=== PATIENT | male | born 1950 | race Caucasian/White ===

== ENCOUNTER 2016-05-22 12:18 | Emergency (ER) | payer MEDICAID ==
[~2016-05-22] VITALS: Ht 182.9 cm; Wt 115.7 kg
[~2016-05-22 12:18] MED LIST: ALBUTEROL2.5 MG/3 M HHN; CIPROFLOXACIN500 M2 ORAL; IBUPROFEN600 MG ORAL; LEVAQUIN750 MG ORAL; NKM; NORCO 5-325 TA1 EACH ORAL; ZITHROMAX250 MG ORAL
--- NOTE | 2016-05-22 13:10 | Emergency Room Report ---
History of Present Illness General Chief Complaint: Male Urogenital Problems Source: Patient Present Illness HPI 66-year-old male presents emergency department complaining of testicular pain x2 days status post trauma while playing basketball his son accidentally hit him in the testicles. rates his pain currently as 4/10 in severity, localized. bilateral testicles. Patient states that he has a history of varicocele and reports that since injury days ago he has had constant pain feeling of heaviness , denies nausea vomiting fevers or chills, denies erythema or increased temperature to palpation, he denies blood in the urine patient denies dysuria. denies penile d/c. Denies CP, Palpitations, LOC, AMS, dizziness, Changes in Vision, Sensation, paresthesias, or a sudden severe headache. Allergies: Coded Allergies: No Known Allergies (Unverified , 03/02/13) Patient History Past Medical History: see triage record Past Surgical History: none Pertinent Family History: none Immunizations: UTD Reviewed Nursing Documentation: PMH: Agreed, PSxH: Agreed Nursing Documentation-PMH Past Medical History: No Stated History Review of Systems All Other Systems: negative except mentioned in HPI Physical Exam Vital Signs Date Time Temp Pulse Resp B/P Pulse Ox O2 Delivery O2 Flow Rate FiO2 05/22/16 12:39 97.9 77 16 110/70 94 Room Air Sp02 EP Interpretation: reviewed, normal General Appearance: no apparent distress, alert, GCS 15, non-toxic Head: normocephalic, atraumatic Eyes: bilateral eye PERRL, bilateral eye normal inspection ENT: hearing grossly normal, normal pharynx, no angioedema, normal voice Neck: full range of motion, supple/symm/no masses Respiratory: lungs clear, normal breath sounds, speaking full sentences Cardiovascular #1: regular rate, rhythm, no edema Gastrointestinal: normal bowel sounds, non tender, soft, no guarding, no rebound Rectal: deferred Genitourinary: normal inspection, no CVA tenderness, penis normal, other - erythema of the bilateral scrotum, no appreciable swelling, cremasteric reflexes are present, negative phren's sign, no LAD Musculoskeletal: back normal, gait/station normal, normal range of motion, non- tender, no calf tenderness Neurologic: alert, oriented x3, responsive, motor strength/tone normal, sensory intact, speech normal Psychiatric: judgement/insight normal, memory normal, mood/affect normal, no suicidal/homicidal ideation Skin: normal color, no rash, warm/dry, well hydrated Lymphatic: no adenopathy Medical Decision Making PA Attestation Dr. Sim is my supervising Physician whom patient management has been discussed with. Diagnostic Impression: Primary Impression: Epididymal cyst Additional Impressions: Bilateral hydrocele Bilateral varicoceles ER Course 66-year-old male presents emergency department complaining of testicular pain x2 days status post trauma while playing basketball his son accidentally hit him in the testicles. rates his pain currently as 4/10 in severity, localized. bilateral testicles. Patient states that he has a history of varicocele and reports that since injury days ago he has had constant pain feeling of heaviness , denies nausea vomiting fevers or chills, denies erythema or increased temperature to palpation, he denies blood in the urine patient denies dysuria or discharge. Ddx considered but are not limited to testicular torsion, epididymitis, varicocele, hydrocele, orchitis, abscess, hernia Vital signs: are WNL, pt. is afebrile H&PE are most consistent with testicular pain will r/o torsion ORDERS: - Testicular ultrasound: bilateral hydroceles, varicoceles, and left epididymal cyst. no torsion per preliminary radiology report. -UA: WNL /unremarkable no evidence to suggest infection. ED INTERVENTIONS: - none required at this time. DISCHARGE: At this time pt. is stable for d/c to home. Will provide printed patient care instructions, and any necessary prescriptions. Care plan and follow up instructions have been discussed with the patient prior to discharge. Labs Test 05/22/16 13:00 Urine Color Yellow Urine Appearance Clear Urine pH 6 (4.5-8.0) Urine Specific [place] 1.015 (1.005-1.035) Urine Protein Negative (NEGATIVE) Urine Glucose (UA) Negative (NEGATIVE) Urine Ketones Negative (NEGATIVE) Urine Occult Blood Negative (NEGATIVE) Urine Nitrite Negative (NEGATIVE) Urine Bilirubin Negative (NEGATIVE) Urine Urobilinogen 1 MG/DL (0.0-1.0) Urine Leukocyte Esterase Negative (NEGATIVE) Last Vital Signs Date Time Temp Pulse Resp B/P Pulse Ox O2 Delivery O2 Flow Rate FiO2 05/22/16 12:39 97.9 77 16 110/70 94 Room Air Disposition: HOME, SELF-CARE Condition: Stable Scripts Ibuprofen* (MOTRIN*) 600 Mg Tablet 600 MG ORAL THREE TIMES A DAY, #30 TAB 0 Refills Prov: Carmen Townsend 05/22/16 Referrals: [facility] (PCP) Patient Instructions: Hydrocele, Adult, Varicocele Additional Instructions: Take medications as directed. Follow up with PCP or Urologist in 3-5 days Return sooner to ED if new symptoms occur, or current symptoms become worse. - Please note that this Emergency Department Report was dictated using [employer] cleaner technology software, occasionally this can lead to erroneous entry secondary to interpretation by the dictation equipment. Carmen Townsend May 22, 2016 13:10
[2016-05-22 13:18] LABS: APPEARANCE,URINE CLEAR; KETONES,URINE NEGATIVE (NEGATIVE); LEUKOCYTE ESTERASE ,URINE NEGATIVE (NEGATIVE); NITRITE,URINE NEGATIVE (NEGATIVE); PH,URINE 6 (4.5-8.0); PROTEIN,URINE NEGATIVE (NEGATIVE); UROBILINOGEN,URINE 1 MG/DL (0.0-1.0)
[2016-05-22 13:45] VITALS: BP 110/70
[2016-05-22] MEDS ORDERED: IBUPROFEN600 MG ORAL (14:56)
[2016-05-22 15:15] VITALS: BP 110/70
--- NOTE | 2016-05-22 16:48 | Diagnostic Imaging Report ---
Indications: Bilateral testicular pain, left more than right, trauma Technique: Grayscale and duplex images of the scrotum Comparison:08/20/2013 Findings:The right testicle measures 4.4cm in length. It demonstrates normal echogenicity. Normal Doppler flow. Normal epididymis. There is a small hydrocele. There is a right varicocele The left testicle measures 4.6 cm in length. It demonstrates normal echogenicity and normal Doppler flow. Normal epididymis. There is a small hydrocele. There is a varicocele which is larger than on the left. 2 small cysts are seen in the epididymal head, largest measuring 7 mm diameter acute process When compared to prior study, the second epididymal head cyst on the left and a right varicocele are new findings Impression: No acute process Bilateral varicoceles, left greater than right Bilateral hydroceles 2 left epididymal cysts versus spermatoceles
== END 2016-05-22 15:15 | disposition home or self-care (01) ==
LOC: EMR 13:05
DX: N50.3 Cyst of epididymis (principal); N43.3 Hydrocele, unspecified; I86.1 Scrotal varices
CPT/HCPCS: 76870; 81003; 99284

== ENCOUNTER 2017-04-12 09:46 | Emergency (ER) | payer MEDICAID ==
[~2017-04-12] VITALS: Ht 182.9 cm; Wt 108.9 kg
[2017-04-12 11:05] VITALS: BP 131/80
[2017-04-12] MEDS ORDERED: TYLENOL325 MG ORAL (11:05)
[2017-04-12] MEDS ORDERED: IBUPROFEN800 MG ORAL (11:05)
--- NOTE | 2017-04-14 14:49 | Emergency Room Report ---
History of Present Illness General Chief Complaint: Pain Source: Patient Present Illness HPI 66-year-old male with "tailbone pain" after sitting for long time a computer. No actual trauma, recent falls states he hurt tailbone years ago, and suffered fracture no LE weakness, urinary incontinence No fever or chills, urinay complaints Allergies: Coded Allergies: No Known Allergies (Unverified , 03/02/13) Patient History Past Medical History: none Past Surgical History: none Pertinent Family History: none Social History: Denies: smoking, alcohol use, drug use Immunizations: UTD Reviewed Nursing Documentation: PMH: Agreed, PSxH: Agreed Nursing Documentation-PMH Past Medical History: No Stated History Review of Systems All Other Systems: negative except mentioned in HPI Physical Exam Vital Signs Date Time Temp Pulse Resp B/P (MAP) Pulse Ox O2 Delivery O2 Flow Rate FiO2 04/12/17 09:56 97.2 58 18 134/81 94 Room Air Sp02 EP Interpretation: reviewed, normal General Appearance: normal inspection, well appearing, no apparent distress, alert, GCS 15, non-toxic Head: normocephalic, atraumatic Eyes: bilateral eye PERRL, bilateral eye EOMI ENT: normal ENT inspection, hearing grossly normal, normal pharynx, no angioedema, normal voice, TMs + canals normal, uvula midline, moist mucus membranes Neck: normal inspection, full range of motion, supple, thyroid normal, no meningismus, no bony tend Respiratory: normal inspection, lungs clear, normal breath sounds, no rhonchi, no respiratory distress, no retraction, no accessory muscle use, no wheezing, speaking full sentences Cardiovascular #1: regular rate, rhythm, no edema, no JVD, normal capillary refill Gastrointestinal: normal inspection, normal bowel sounds, non tender, soft, no mass, no peritonitis, non-distended, no guarding, no hernia, no pulsatile mass Genitourinary: no CVA tenderness Musculoskeletal: normal inspection, back normal, normal range of motion, no calf tenderness, pelvis stable, Summer's Sign negative, other - Very minimal ttp to sacral spine on exam. No ecchymoses or signs of trauma Neurologic: normal inspection, alert, oriented x3, responsive, corporate webmaster III-XII nml as tested, motor strength/tone normal, cerebellar normal, normal gait, speech normal Psychiatric: normal inspection, judgement/insight normal, mood/affect normal, no suicidal/homicidal ideation, no delusions Skin: normal inspection, normal color, no rash Lymphatic: normal inspection, no adenopathy Medical Decision Making Diagnostic Impression: Primary Impression: Back pain Qualified Codes: M54.5 - Low back pain ER Course VSS, afebrile Atraumatic Minimal ttp Improved with NSAIDS Reassured ER course: Patient has remained stable during ED stay. Disposition: Patient is to be discharged to home. Prescriptions given are motrin Patient is instructed to follow up with their primary care doctor within 5 days. Strict return precautions discussed with patient such as fever, chills, worsening/severe pain, nausea, vomiting, which may indicate severe illness. Patient verbalizes understanding and agrees with plan. Please note that this Emergency Department Report was dictated using [email or web address] coder technology software, occasionally this can lead to erroneous entry secondary to interpretation by the dictation equipment Last Vital Signs Date Time Temp Pulse Resp B/P (MAP) Pulse Ox O2 Delivery O2 Flow Rate FiO2 04/12/17 11:05 97.2 66 18 131/80 100 Room Air Status: improved Disposition: HOME, SELF-CARE Condition: Improved Scripts Ibuprofen* (MOTRIN*) 800 Mg Tablet 800 MG ORAL THREE TIMES A DAY for For Pain for 7 Days, #30 TAB 0 Refills Prov: INDY EID M.D. 04/12/17 Acetaminophen (Tylenol) 325 Mg Tablet 650 MG ORAL Q6H Y for Prn Pain/Headache/Temp > 101 for 7 Days, #30 TAB 0 Refills Prov: INDY EID M.D. 04/12/17 Referrals: [facility] ([facility]P) Patient Instructions: Back Pain, Adult, [id number] INDY EID M.D. Apr 14, 2017 14:49
== END 2017-04-12 11:05 | disposition home or self-care (01) ==
LOC: EMR 11:00
DX: M54.5 Low back pain (principal)
CPT/HCPCS: 99283

== ENCOUNTER 2018-04-20 18:51 | Emergency (ER) | payer MEDICARE, MEDICAID ==
[~2018-04-20] VITALS: Ht 182.9 cm; Wt 113.4 kg
[~2018-04-20 18:51] MED LIST changes: +IBUPROFEN800 MG ORAL; +TYLENOL325 MG ORAL
[2018-04-20] MEDS ORDERED: NKM (18:59)
--- NOTE | 2018-04-20 19:06 | NUR ---
ED Nurse Note: Pt came to ed from home c/o chest congestion and weakness x 1 day per pt he denies taking medication, pt has hx of pna
[2018-04-20 19:15] VITALS: BP 128/70
[2018-04-20] MEDS ORDERED: Albuterol/Ipratropium 3ml neb HHN ONE (19:15)
--- NOTE | 2018-04-20 19:16 | Emergency Room Report ---
History of Present Illness General Chief Complaint: Upper Respiratory Illness Source: Patient Present Illness HPI Patient is a 68-year-old male presented after increased generalized weakness and increased cough. Patient had acute onset of symptoms. He denies any recent sick contacts. He reports of increased nasal congestion. He reports having some prior history for which she was diagnosed with pneumonia in the past.Patient denies any vomiting or diarrhea Allergies: Coded Allergies: No Known Allergies (Unverified , 03/02/13) Patient History Past Medical History: see triage record Reviewed Nursing Documentation: PMH: Agreed; PSxH: Agreed Nursing Documentation-PMH Past Medical History: No History, Except For Review of Systems All Other Systems: negative except mentioned in HPI Physical Exam Vital Signs Date Time Temp Pulse Resp B/P (MAP) Pulse Ox O2 Delivery O2 Flow Rate FiO2 04/20/18 18:56 99.1 81 19 128/70 91 Room Air Sp02 EP Interpretation: reviewed, normal General Appearance: normal inspection, well appearing, no apparent distress, alert, GCS 15 Head: atraumatic ENT: normal ENT inspection, hearing grossly normal, normal voice Neck: normal inspection, full range of motion, supple, no bony tend Respiratory: normal inspection, no respiratory distress, no retraction, wheezing Cardiovascular #1: regular rate, rhythm, no edema Gastrointestinal: normal inspection, normal bowel sounds, non tender, soft, no guarding, no hernia Genitourinary: no CVA tenderness Musculoskeletal: normal inspection, back normal, normal range of motion Neurologic: normal inspection, alert, oriented x3, responsive, crew clerk III-XII nml as tested, speech normal Psychiatric: normal inspection, judgement/insight normal, mood/affect normal Skin: normal inspection, normal color, no rash Medical Decision Making Diagnostic Impression: Primary Impression: Urinary tract infection Additional Impression: Acute pneumonitis ER Course Patient presented for shortness of breath. Differential included but was not limited to anemia, pneumonia, pneumothorax, myocardial infarction, pericardial effusion, congestive heart failure, acidosis.Patient was noted to have some wheezing on lung exam and was given breathing treatment. Patient reports having some mild improvement. Patient's influenza study was noted to be negative. Patient was offered admission due to concerning chest pain. Patient declined. Patient was advised to return if he felt worse. He was advised that he would require some cardiology evaluation. The patient is advised to follow up with primary care doctor in 1-2 days. Patient is advised to return if any worsening condition or if any changes in status that are concerning. This report is dictated with [employer] fence post driver software which may occasionally lead to discrepancies related to use of this software. Labs Test 04/20/18 19:10 White Blood Count 6.6 K/UL (4.8-10.8) Red Blood Count 4.46 M/UL (4.70-6.10) Hemoglobin 14.1 G/DL (14.2-18.0) Hematocrit 41.1 % (42.0-52.0) Mean Corpuscular Volume 92 FL (80-99) Mean Corpuscular Hemoglobin 31.5 PG (27.0-31.0) Mean Corpuscular Hemoglobin Concent 34.2 G/DL (32.0-36.0) Red Cell Distribution Width 11.4 % (11.6-14.8) Platelet Count 117 K/UL (150-450) Mean Platelet Volume 7.8 FL (6.5-10.1) Neutrophils (%) (Auto) 72.2 % (45.0-75.0) Lymphocytes (%) (Auto) 9.3 % (20.0-45.0) Monocytes (%) (Auto) 16.9 % (1.0-10.0) Eosinophils (%) (Auto) 0.6 % (0.0-3.0) Basophils (%) (Auto) 1.0 % (0.0-2.0) Urine Color Yellow Urine Appearance Clear Urine pH 6 (4.5-8.0) Urine Specific [place] 1.020 (1.005-1.035) Urine Protein 1+ (NEGATIVE) Urine Glucose (UA) Negative (NEGATIVE) Urine Ketones Negative (NEGATIVE) Urine Blood Negative (NEGATIVE) Urine Nitrite Negative (NEGATIVE) Urine Bilirubin Negative (NEGATIVE) Urine Urobilinogen 1 MG/DL (0.0-1.0) Urine Leukocyte Esterase 1+ (NEGATIVE) Urine RBC 0-2 /HPF (0 - 0) Urine WBC 2-4 /HPF (0 - 0) Urine Squamous Epithelial Cells None /LPF (NONE/OCC) Urine Bacteria Few /HPF (NONE) Urine Mucus Few /LPF (NONE/OCC) Sodium Level 135 MMOL/L (136-145) Potassium Level 3.7 MMOL/L (3.5-5.1) Chloride Level 99 MMOL/L (98-107) Carbon Dioxide Level 28 MMOL/L (21-32) Anion Gap 8 mmol/L (5-15) Blood Urea Nitrogen 15 mg/dL (7-18) Creatinine 1.1 MG/DL (0.55-1.30) Estimat Glomerular Filtration Rate > 60 mL/min (>60) Glucose Level 99 MG/DL (74-106) Calcium Level 8.7 MG/DL (8.5-10.1) Total Bilirubin 0.7 MG/DL (0.2-1.0) Aspartate Amino Transf (AST/SGOT) 23 U/L (15-37) Alanine Aminotransferase (ALT/SGPT) 33 U/L (12-78) Alkaline Phosphatase 83 U/L (46-116) Total Protein 8.0 G/DL (6.4-8.2) Albumin 3.7 G/DL (3.4-5.0) Globulin 4.3 g/dL Albumin/Globulin Ratio 0.9 (1.0-2.7) EKG Diagnostic Results Rate: normal Rhythm: NSR ST Segments: no acute changes Last Vital Signs Date Time Temp Pulse Resp B/P (MAP) Pulse Ox O2 Delivery O2 Flow Rate FiO2 04/20/18 18:56 99.1 81 19 128/70 91 Room Air Status: improved Disposition: HOME, SELF-CARE Condition: Stable Scripts Doxycycline Monohydrate* (DOXYCYCLINE MONOHYDRATE*) 100 Mg Capsule 100 MG ORAL Q12H, #14 CAP 0 Refills Prov: Deejay Escobedo MD 04/20/18 Albuterol Sulfate* (ALBUTEROL SULFATE MDI*) 8.5 Gm Hfa.aer.ad 2 PUFF INH Q4H, #1 INH 0 Refills Prov: Deejay Escobedo MD 04/20/18 Deejay Escobedo MD Apr 20, 2018 19:16
[2018-04-20 19:25] LABS: EOSINOPHILS % (AUTO) 0.6 % (0.0-3.0); HEMATOCRIT 41.1 % (42.0-52.0); HEMOGLOBIN 14.1 G/DL (14.2-18.0); LYMPHOCYTES % (AUTO) 9.3 % (20.0-45.0); MEAN CORPUSCULAR VOLUME 92 FL (80-99); MONOCYTES % (AUTO) 16.9 % (1.0-10.0); NEUTROPHILS % (AUTO) 72.2 % (45.0-75.0); PLATELET COUNT 117 K/UL (150-450); RED BLOOD COUNT 4.46 M/UL (4.70-6.10); RED CELL DISTRIBUTION WIDTH 11.4 % (11.6-14.8); WHITE BLOOD COUNT 6.6 K/UL (4.8-10.8)
[2018-04-20 20:07] LABS: ANION GAP 8 mmol/L (5-15); BLOOD UREA NITROGEN 15 mg/dL (7-18); CALCIUM 8.7 MG/DL (8.5-10.1); CARBON DIOXIDE 28 MMOL/L (21-32); CHLORIDE 99 MMOL/L (98-107); CREATININE 1.1 MG/DL (0.55-1.30); POTASSIUM 3.7 MMOL/L (3.5-5.1); SODIUM 135 MMOL/L (136-145)
[2018-04-20 20:11] LABS: ALANINE AMINOTRANSFERASE 33 U/L (12-78); ALBUMIN 3.7 G/DL (3.4-5.0); ALBUMIN/GLOBULIN RATIO 0.9 (1.0-2.7); ALKALINE PHOSPHATASE 83 U/L (46-116); ASPARTATE AMINO TRANSFERASE 23 U/L (15-37); BILIRUBIN,TOTAL 0.7 MG/DL (0.2-1.0)
[2018-04-20 20:49] LABS: APPEARANCE,URINE CLEAR; BILIRUBIN, URINE NEGATIVE (NEGATIVE); GLUCOSE, URINE (UA) NEGATIVE (NEGATIVE); KETONES,URINE NEGATIVE (NEGATIVE); LEUKOCYTE ESTERASE ,URINE 1+ (NEGATIVE); NITRITE,URINE NEGATIVE (NEGATIVE); PH,URINE 6 (4.5-8.0); PROTEIN,URINE 1+ (NEGATIVE); UROBILINOGEN,URINE 1 MG/DL (0.0-1.0)
[2018-04-20 20:55] LABS: COLOR,URINE YELLOW
[2018-04-20 21:30] VITALS: BP 119/93
[2018-04-20] MEDS ORDERED: Cephalexin 500mg cap ORAL ONE (21:30)
[2018-04-20] MEDS ORDERED: ALBUTEROL SULF8.5 GM INH (21:45)
[2018-04-20] MEDS ORDERED: BACTRIM DS TAB1 EAC1 ORAL (21:45)
[2018-04-20] MEDS ORDERED: DOXYCYCLINE MO100 MG ORAL (21:57)
[2018-04-20 21:59] VITALS: BP 119/93
--- NOTE | 2018-04-20 21:59 | NUR ---
ED Nurse Note: pt is dc per ermd order, pt is aox4 with stable vss, pt was given dc and prescription instruction. ID band removed and iv site discontinued without complication. pt verbalized understanding, pt is able to ambulate with steady gait. pt took all belongings
== END 2018-04-20 21:59 | disposition home or self-care (01) ==
LOC: EMR 19:30
DX: N39.0 Urinary tract infection, site not specified (principal)
CPT/HCPCS: 36415; 71045; 80053; 81003; 85025; 86710; 87040; 94640; 94664; 99284; J7620

== ENCOUNTER 2018-05-02 11:17 | Inpatient (IN) | payer MEDICARE, MEDICAID ==
[~2018-05-02] VITALS: Ht 182.9 cm; Wt 113.4 kg
[~2018-05-02 11:17] MED LIST changes: +ALBUTEROL SULF8.5 GM INH; +BACTRIM DS TAB1 EAC1 ORAL; +DOXYCYCLINE MO100 MG ORAL
[2018-05-02 11:30] VITALS: BP 128/68
--- NOTE | 2018-05-02 11:30 | NUR ---
ED Nurse Note: PT WALKED IN TO ER TODAY FROM HOME. AOX4. PT C/O PERSISTENT NONPRODUCTIVE COUGH AND CONGESTION X 2 WEEKS AGO. PT STATES HE WAS SEEN 2 WEEKS AGO IN ER AND WAS GIVEN ABX RX BUT HAS NOT HAD ANY RELIEF DESPITE COMPLIANCE WITH MEDS. NO COUGH PRESENT AT ER HOWEVER PT O2SAT 90% ON RA. PT PLACED ON 2L O2 VIA NASAL CANNULA AND O2 SAT UP TO 95%.
--- NOTE | 2018-05-02 11:43 | Emergency Room Report ---
History of Present Illness General Chief Complaint: Upper Respiratory Illness Source: Patient Present Illness HPI 68-year-old male with no medical problems, recent diagnosed pneumonia earlier this month, presents with just some cough, nonproductive, and generalized fatigue. He denies fever, and reports overall he is feeling better after the course of abx he received and completed, but just not feeling 100% recovered. He denies CP, SOB, syncope, myalgias, hemoptysis, sputum production, leg pain or swelling. Allergies: Coded Allergies: No Known Allergies (Unverified , 03/02/13) Patient History Past Medical History: see triage record Reviewed Nursing Documentation: PMH: Agreed; PSxH: Agreed Nursing Documentation-PMH Past Medical History: No History, Except For Hx Cardiac Problems: No Hx Hypertension: No Hx Pacemaker: No Hx Asthma: No Hx COPD: No - PNEUMONIA Hx Diabetes: No Hx Cancer: No Hx Gastrointestinal Problems: No Hx Dialysis: No History Of Psychiatric Problem: No Hx Neurological Problems: No Hx Cerebrovascular Accident: No Hx Seizures: No Review of Systems All Other Systems: negative except mentioned in HPI Physical Exam Vital Signs Date Time Temp Pulse Resp B/P (MAP) Pulse Ox O2 Delivery O2 Flow Rate FiO2 05/02/18 11:25 98.2 86 16 123/80 94 Room Air Sp02 EP Interpretation: reviewed, normal General Appearance: no apparent distress, alert, non-toxic Head: normocephalic Eyes: bilateral eye normal inspection, bilateral eye PERRL, bilateral eye EOMI ENT: normal ENT inspection, hearing grossly normal, normal pharynx, no angioedema, normal voice, moist mucus membranes Neck: normal inspection, full range of motion, supple, supple/symm/no masses Respiratory: chest non-tender, lungs clear, normal breath sounds, chest symmetrical, palpation of chest normal Cardiovascular #1: normal peripheral pulses, regular rate, rhythm Cardiovascular #2: 2+ radial (R), 2+ radial (L) Gastrointestinal: normal inspection, non tender, soft, no mass, no guarding, no rebound Rectal: deferred Genitourinary: normal inspection, no CVA tenderness Musculoskeletal: back normal, gait/station normal, normal range of motion, non- tender, no calf tenderness, Summer's Sign negative Neurologic: alert, responsive, matzo forming machine operator III-XII nml as tested, motor strength/tone normal, sensory intact, speech normal Psychiatric: judgement/insight normal, memory normal, mood/affect normal Skin: normal color, no rash, warm/dry, normal turgor Lymphatic: no adenopathy Medical Decision Making Diagnostic Impression: Primary Impression: Acute coronary syndrome ER Course Patient with no chest pain, no shortness of breath, just persistent cough and generalized malaise, but found to have elevated troponin, unremarkable EKG, normal chest x-ray, vital signs also unremarkable, O2 sats slightly elevated, likely secondary to cardiac disease, no abdominal pain, soft nontender abdomen, patient given a full dose of aspirin, will consult cardiology and admit patient to stepdown unit, diagnosis acute coronary syndrome. Patient has negative Homans sign, no hemoptysis, no pleuritic chest pain, no chest pain at all, do not suspect PE, will admit as mentioned. EKG Diagnostic Results EKG Time: 11:43 EP Interpretation: no stemi, no [id number] Rate: normal Rhythm: NSR ST Segments: no acute changes ASA given to the pt in ED: No Rhythm Strip Diag. Results Rhythm Strip Time: 11:48 EP Interpretation: yes Rate: 85 Rhythm: NSR, no PVC's, no ectopy Chest X-Ray Diagnostic Results Chest X-Ray Diagnostic Results : Chest X-Ray Ordered: Yes # of Views/Limited/Complete: 1 View Indication: Other - cough EP Interpretation: Yes PA Xray: Interpretation reviewed Interpretation: no consolidation, no effusion, no pneumothorax, no acute cardiopulmonary disease Impression: No acute disease Electronically Signed by: Maricel Graham MD Last Vital Signs Date Time Temp Pulse Resp B/P (MAP) Pulse Ox O2 Delivery O2 Flow Rate FiO2 05/02/18 11:25 98.2 86 16 123/80 94 Room Air Disposition: ADMITTED INPATIENT Condition: Stable MARICEL GRAHAM M.D May 02, 2018 11:43
--- NOTE | 2018-05-02 12:01 | NUR ---
ED Nurse Note: RT CALLED FOR BREATHING TX.
[2018-05-02 12:05] LABS: EOSINOPHILS % (AUTO) 0.1 % (0.0-3.0); HEMATOCRIT 40.9 % (42.0-52.0); HEMOGLOBIN 13.8 G/DL (14.2-18.0); LYMPHOCYTES % (AUTO) 11.2 % (20.0-45.0); MEAN CORPUSCULAR VOLUME 91 FL (80-99); MONOCYTES % (AUTO) 15.1 % (1.0-10.0); NEUTROPHILS % (AUTO) 72.7 % (45.0-75.0); PLATELET COUNT 225 K/UL (150-450); RED BLOOD COUNT 4.48 M/UL (4.70-6.10); RED CELL DISTRIBUTION WIDTH 11.4 % (11.6-14.8); WHITE BLOOD COUNT 6.7 K/UL (4.8-10.8)
--- NOTE | 2018-05-02 12:06 | Diagnostic Imaging Report ---
Indication: Cough Technique: One view of the chest Comparison: 04/20/2018 Findings: Suboptimal inspiration. No definite acute infiltrates, effusions, or congestion. The heart size is upper limits of normal. Impression: No acute process
[2018-05-02 12:22] LABS: ANION GAP 9 mmol/L (5-15); BLOOD UREA NITROGEN 12 mg/dL (7-18); CALCIUM 8.4 MG/DL (8.5-10.1); CARBON DIOXIDE 26 MMOL/L (21-32); CHLORIDE 99 MMOL/L (98-107); CREATININE 1.1 MG/DL (0.55-1.30); POTASSIUM 3.9 MMOL/L (3.5-5.1); SODIUM 134 MMOL/L (136-145)
[2018-05-02] MEDS: Ipratropium 0.02% Inh Soln 2.5ml UD HHN SCH ×2 (12:24→12:25)
[2018-05-02] MEDS: Albuterol ud Inhalation HHN SCH ×2 (12:24→12:25)
[2018-05-02 12:30] LABS: ALANINE AMINOTRANSFERASE 124 U/L (12-78); ALBUMIN 3.4 G/DL (3.4-5.0); ALBUMIN/GLOBULIN RATIO 0.7 (1.0-2.7); ALKALINE PHOSPHATASE 140 U/L (46-116); ASPARTATE AMINO TRANSFERASE 68 U/L (15-37); BILIRUBIN,TOTAL 0.5 MG/DL (0.2-1.0)
[2018-05-02 13:30] VITALS: BP 122/71
[2018-05-02] MEDS ORDERED: Albuterol/Ipratropium 3ml neb HHN PRN (13:45)
[2018-05-02] MEDS ORDERED: Nitroglycerin Subl 0.4mg tab SL PRN (13:45)
[2018-05-02] MEDS ORDERED: Enalaprilat 2.5mg/2ml Inj IV PRN (13:45)
[2018-05-02] MEDS ORDERED: Morphine Sulfate 2mg/ml Inj(IV/IM USE ONLY) IVP PRN (13:45)
[2018-05-02] MEDS ORDERED: Miralax 17gm pkt ORAL PRN (13:45)
[2018-05-02] MEDS ORDERED: Ketorolac 30mg Inj IV PRN (13:45)
[2018-05-02] MEDS ORDERED: dilTIAZem HCl 25mg/5ml Inj IV PRN (13:45)
[2018-05-02 15:30] VITALS: BP 136/77
--- NOTE | 2018-05-02 17:50 | NUR ---
ED Nurse Note: CALLED SDU FOR PT REPORT. PER UNIT, CANNOT FIND NURSE. CALL BACK LATER.
--- NOTE | 2018-05-02 18:30 | NUR ---
NURSE NOTES: Received report from WILLIAM Webster. Patient arrived to unit in stable condition. No s/sx of SOB, breathing is even and unlabored. Denies any presence of pain or discomfort at this time. Bed is in lowest position, brakes engaged. Call light is kept within easy reach. Will continue to monitor patient.
--- NOTE | 2018-05-02 18:32 | NUR ---
ED Nurse Note: SDU CALLED FOR PT REPORT. REPORT GIVEN TO WILLIAM SULLIVAN. PT SENT UP TO SDU ON AMBULANCE PARAMEDIC AND ALL BELONGINGS ACCOMPANIED BY PRIMARY RN AND EMT.
--- NOTE | 2018-05-02 19:00 | NUR ---
HAND-OFF: Report given to WILLIAM Nogueira.
--- NOTE | 2018-05-02 19:33 | NUR ---
NURSE NOTES: Report received from WILLIAM Blakely. Pt was transferred to the unit around 1900. A/O x4. Denies any pain. V/S BP 140/86, P 83, R 16, SaO2 97%, T 97.9. SR with cardiac technician. IV on L AC 20G, intact and patent. Bed in the lowest position. Side rails up x2. Will continue to monitor.
--- NOTE | 2018-05-02 19:37 | Cardiology Progress Note ---
Assessment/Plan Assessment/Plan no sign or sx of acs trop abn rahter unexpected ekg neg echo prelim neg not a diabtic repeat trop and ekg statin asa lmwh for now venous duplex v/q since has no sig rf for cad or sx of acs nor abn on echo or ekg will look for other causes of abn víctor florez treating for underlying cad as well [id number] Objective Last 24 Hour Vital Signs Date Time Temp Pulse Resp B/P (MAP) Pulse Ox O2 Delivery O2 Flow Rate FiO2 05/02/18 18:33 98.4 83 22 119/82 97 Room Air 05/02/18 15:30 98.5 82 20 136/77 100 Nasal Cannula 1.0 05/02/18 13:30 98.3 78 21 122/71 100 Nasal Cannula 1.0 05/02/18 13:11 84 23 99 05/02/18 12:55 84 23 98 05/02/18 12:49 83 23 98 05/02/18 12:48 24 05/02/18 12:38 79 24 98 Nasal Cannula 1.0 24 05/02/18 12:38 79 24 98 05/02/18 12:37 24 05/02/18 12:31 78 23 Nasal Cannula 1.0 24 05/02/18 12:25 78 23 93 Nasal Cannula 1.0 24 05/02/18 11:30 98.4 74 12 128/68 95 Nasal Cannula 2.0 05/02/18 11:30 74 12 Room Air 2.0 05/02/18 11:25 98.2 86 16 123/80 94 Room Air Laboratory Tests Test 05/02/18 11:49 White Blood Count 6.7 K/UL (4.8-10.8) Red Blood Count 4.48 M/UL (4.70-6.10) L Hemoglobin 13.8 G/DL (14.2-18.0) L Hematocrit 40.9 % (42.0-52.0) L Mean Corpuscular Volume 91 FL (80-99) Mean Corpuscular Hemoglobin 30.9 PG (27.0-31.0) Mean Corpuscular Hemoglobin Concent 33.8 G/DL (32.0-36.0) Red Cell Distribution Width 11.4 % (11.6-14.8) L Platelet Count 225 K/UL (150-450) Mean Platelet Volume 7.0 FL (6.5-10.1) Neutrophils (%) (Auto) 72.7 % (45.0-75.0) Lymphocytes (%) (Auto) 11.2 % (20.0-45.0) L Monocytes (%) (Auto) 15.1 % (1.0-10.0) H Eosinophils (%) (Auto) 0.1 % (0.0-3.0) Basophils (%) (Auto) 1.0 % (0.0-2.0) Sodium Level 134 MMOL/L (136-145) L Potassium Level 3.9 MMOL/L (3.5-5.1) Chloride Level 99 MMOL/L (98-107) Carbon Dioxide Level 26 MMOL/L (21-32) Anion Gap 9 mmol/L (5-15) Blood Urea Nitrogen 12 mg/dL (7-18) Creatinine 1.1 MG/DL (0.55-1.30) Estimat Glomerular Filtration Rate > 60 mL/min (>60) Glucose Level 102 MG/DL (74-106) Calcium Level 8.4 MG/DL (8.5-10.1) L Total Bilirubin 0.5 MG/DL (0.2-1.0) Aspartate Amino Transf (AST/SGOT) 68 U/L (15-37) H Alanine Aminotransferase (ALT/SGPT) 124 U/L (12-78) H Alkaline Phosphatase 140 U/L (46-116) H Troponin I 2.150 ng/mL (0.000-0.056) Pro-B-Type Natriuretic Peptide 865 pg/mL (0-125) H Total Protein 8.6 G/DL (6.4-8.2) H Albumin 3.4 G/DL (3.4-5.0) Globulin 5.2 g/dL Albumin/Globulin Ratio 0.7 (1.0-2.7) L Microbiology Date/Time Source Procedure Growth Status 05/02/18 11:49 Nasal Nares Influenza Types A,B Antigen (SHAY) - Final Complete Jorge Bustos MD May 02, 2018 19:37
[2018-05-02 20:00] VITALS: BP 115/60
[2018-05-02] MEDS ORDERED: Atorvastatin 80mg tab ORAL SCH (21:00)
[2018-05-02] MEDS: Heparin 5000 units/ml inj SUBQ SCH (21:28)
--- NOTE | 2018-05-02 23:00 | NUR ---
NURSE NOTES: Notified regarding pt c/o coughing and new order received and carried out. Will continue to monitor.
[2018-05-03] VITALS: BP 127/62
[2018-05-03] MEDS ORDERED: Guaifenesin/DM 10ml syrup ORAL PRN
--- NOTE | 2018-05-03 01:15 | Consultation ---
DATE OF CONSULTATION: 05/02/2018 NOTE: "POOR AUDIO QUALITY" CARDIAC CONSULTATION CONSULTING PHYSICIAN: Jorge Bustos M.D. REFERRING PHYSICIAN: Day Cox M.D. REASON FOR REFERRAL: [id number] myocardial infarction. HISTORY OF PRESENT ILLNESS: This is a middle-aged gentleman, who really does not have any cardiac history whatsoever. The patient indicates that he presented to the emergency room earlier this month, was diagnosed with pneumonia, and was treated with antibiotics. He came in to the hospital again because of persistent cough although he was much better than he was when he had that diagnosis made and because of his cough and generalized weakness, he had blood testing done. The blood testing showed that there was some evidence of heart attack, so he was admitted to the hospital. He has not had any pain, pressure, tightness, heaviness, or discomfort of any kind in his chest and he has not had any shortness of breath. Really, there was no shortness of breath waking him up at night. There is no orthopnea, no PND. He uses one pillow. There is no dizziness or lightheadedness on standing. He does not really have any heart pounding or palpitation. He has been active until this episode of pneumonia was diagnosed. In fact, he used to walk 3-4 miles a day and do some exercises in the park that he was involved, but he never did have any discomfort in relation to the chest to those activities. PAST MEDICAL HISTORY: Negative. No diabetes or high blood pressure. No heart attack, cancer, stroke, hepatitis, tuberculosis, asthma, emphysema, ulcers, kidney problems, liver problems, thyroid problems, anemia, arthritis, HIV, or AIDS. No other medical problems. ALLERGIES: He is allergic to Bactrim. SOCIAL HISTORY: He does not smoke. He does not drink alcoholic beverages. No drug use. He plays chess. REVIEW OF SYSTEMS: GASTROINTESTINAL: He has some dry heaves at times. No bloody stools or black tarry stools. GENITOURINARY: Negative. PULMONARY: Some coughing as mentioned. No wheezing. CONSTITUTIONAL: No fever, chills, or night sweats recently. NEUROLOGIC: Negative. PHYSICAL EXAMINATION: GENERAL: Shows to be elderly gentleman, in no respiratory distress. HEENT: Unremarkable. NECK: Supple. No jugular venous distention noted. LUNGS: Clear to auscultation and percussion. CARDIAC: Regular rate and rhythm. There is a holosystolic regurgitant murmur. ABDOMEN: Obese. Positive bowel sounds. Nontender. EXTREMITIES: No clubbing or cyanosis nor is there any edema. NEUROLOGICAL: He is awake, alert, and in no apparent distress. LABORATORY VALUES: His EKG shows normal sinus rhythm, normal QRS axis, really no significant ST elevation, he does have some RSR prime pattern in V1 and V2, suggestive of right bundle-branch conduction defect echocardiogram shows normal left ventricular systolic function. A chest x-ray performed in the emergency room shows no acute processes. ASSESSMENT AND PLAN: 1. [id number] myocardial infarction. 2. Recent diagnosis of pneumonia. 3. Obesity. 4. Abnormal liver function tests. Dr. Cox, this patient was seen in cardiac consultation. The patient has no signs or symptoms of coronary syndrome. No chest pain. He is not a diabetic. The fact that his troponin is elevated at this degree is somewhat of a surprise and nothing to suggest that he has any element of a coronary syndrome at this time. His last troponin was last performed on prior assay in 2013 and at that time, it was negative. He does have mildly elevated proBNP. My recommendation is to repeat the cardiac enzymes and repeat the EKG, and see if those levels are confirmed and repeat CPK. Venous duplex study of the lower extremities should be performed and the question is whether he should have a V/Q scan as well in light of the fact that he does not have signs or symptoms of coronary syndrome. In the meantime, I will put him on some anticoagulation with heparin. If his cardiac enzyme truly is elevated and no other causes of abnormality of the troponin is identified to suggest pulmonary embolism, he may require cardiac catheterization. He has no signs or symptoms. Aspirin will be provided and the patient will be followed with statin as well being provided. Lipid profile will also be ordered. Jorge Bustos M.D. DR: BHARGAV JOB#: [id number] CC:
--- NOTE | 2018-05-03 02:45 | NUR ---
NURSE NOTES: Observed pt sleeping on the bed. No acute distress noted at this time.
[2018-05-03 04:00] VITALS: BP 109/56
[2018-05-03 06:12] LABS: BASOPHILS % (AUTO) 0.3 % (0.0-2.0); HEMOGLOBIN 12.7 G/DL (14.2-18.0); LYMPHOCYTES % (AUTO) 14.6 % (20.0-45.0); MEAN CORPUSCULAR VOLUME 91 FL (80-99); MONOCYTES % (AUTO) 15.8 % (1.0-10.0); NEUTROPHILS % (AUTO) 69.3 % (45.0-75.0); PLATELET COUNT 193 K/UL (150-450); RED BLOOD COUNT 4.04 M/UL (4.70-6.10); RED CELL DISTRIBUTION WIDTH 11.3 % (11.6-14.8); WHITE BLOOD COUNT 6.1 K/UL (4.8-10.8)
[2018-05-03 06:27] LABS: INR 1.3 (0.9-1.1)
[2018-05-03 06:52] LABS: ALANINE AMINOTRANSFERASE 103 U/L (12-78); ALBUMIN/GLOBULIN RATIO 0.7 (1.0-2.7); ALKALINE PHOSPHATASE 120 U/L (46-116); ANION GAP 8 mmol/L (5-15); ASPARTATE AMINO TRANSFERASE 59 U/L (15-37); BILIRUBIN,TOTAL 0.7 MG/DL (0.2-1.0); CALCIUM 8.1 MG/DL (8.5-10.1); CARBON DIOXIDE 26 MMOL/L (21-32); CHLORIDE 101 MMOL/L (98-107); CHOLESTEROL 113 MG/DL (< 200); HDL CHOLESTEROL 31 MG/DL (40-60); SODIUM 135 MMOL/L (136-145); TRIGLYCERIDES 89 MG/DL (30-150)
[2018-05-03 07:00] LABS: CREATINE KINASE 162 U/L (26-308)
[2018-05-03 07:17] LABS: BLOOD UREA NITROGEN 13 mg/dL (7-18)
--- NOTE | 2018-05-03 07:29 | NUR ---
HAND-OFF: Report given to WILLIAM Hameed. Pt eating breakfast. Denies any pain at this time. No acute distress noted.
--- NOTE | 2018-05-03 07:51 | NUR ---
NURSE NOTES: Received Pt from Shamar Sanchez RN. Pt is AAOx4 on RA with no cardiopulmonary distress noted. L ac 20g noted. Pt denies chest pain and SOB. Pt is AMB and uses bathroom. Bed in lowest position. Side rails up x 2. Call light within reach. Will continue to monitor.
[2018-05-03 08:00] VITALS: BP 128/78
[2018-05-03] MEDS: Heparin 5000 units/ml inj SUBQ SCH (08:35)
[2018-05-03] MEDS ORDERED: Aspirin Baby 81mg ORAL SCH (09:00)
--- NOTE | 2018-05-03 09:17 | NUR ---
NURSE NOTES: Called and left message to Dr. Bustos regarding elevated troponin level. Awaiting for call back.
--- NOTE | 2018-05-03 09:26 | NUR ---
NURSE NOTES: Called back from Dr. Bustos regarding elevated troponin with new order of VQ scan. Order carried out.
[2018-05-03] MEDS ORDERED: Isovue-370 150ml vial INJ PRN (11:45)
--- NOTE | 2018-05-03 11:49 | Consultation ---
History of Present Illness General Date patient seen: May 03, 2018 Chief Complaint: Upper Respiratory Illness Present Illness HPI 68 year old male without any PMHx presented last week to [facility] with symptoms of upper respiratory tract infection, was treated with abx and inhalers. He got better somewhat but not full. He came to ER to follow up and had a positive troponin. He is admitted to [facility] for further work up. Allergies: Coded Allergies: No Known Allergies (Unverified , 03/02/13) Medication History Scheduled Albuterol Sulfate* (Albuterol Sulfate Mdi*), 2 PUFF INH Q4H Doxycycline Monohydrate* (Doxycycline Monohydrate*), 100 MG ORAL Q12H Patient History Healthcare decision maker Resuscitation status Full Code Advanced Directive on File Past Medical/Surgical History Past Medical/Surgical History: (1) Varicocele Review of Systems Constitutional: Reports: no symptoms ENT: Reports: no symptoms Respiratory: Reports: shortness of breath Physical Exam General Appearance: WD/WN Lines, tubes and drains: peripheral HEENT: normocephalic, anicteric Neck: non-tender, supple Respiratory/Chest: chest wall non-tender, lungs clear Cardiovascular/Chest: normal peripheral pulses Abdomen: normal bowel sounds Genitourinary/Rectal: normal genital exam Extremities: normal range of motion Last 24 Hour Vital Signs Date Time Temp Pulse Resp B/P (MAP) Pulse Ox O2 Delivery O2 Flow Rate FiO2 05/03/18 08:00 98.1 79 20 128/78 (95) 91 05/03/18 08:00 Room Air 05/03/18 08:00 80 05/03/18 04:00 77 05/03/18 04:00 98.2 84 20 109/56 (73) 92 05/03/18 04:00 Room Air 05/03/18 00:00 98.2 84 18 127/62 (83) 97 05/03/18 00:00 Room Air 05/03/18 00:00 91 05/02/18 20:16 Room Air 05/02/18 20:00 98.0 80 20 115/60 (78) 95 05/02/18 20:00 81 05/02/18 20:00 Room Air 05/02/18 18:33 98.4 83 22 119/82 97 Room Air 05/02/18 15:30 98.5 82 20 136/77 100 Nasal Cannula 1.0 05/02/18 13:30 98.3 78 21 122/71 100 Nasal Cannula 1.0 05/02/18 13:11 84 23 99 05/02/18 12:55 84 23 98 05/02/18 12:49 83 23 98 05/02/18 12:48 24 05/02/18 12:38 79 24 98 Nasal Cannula 1.0 24 05/02/18 12:38 79 24 98 05/02/18 12:37 24 05/02/18 12:31 78 23 Nasal Cannula 1.0 24 05/02/18 12:25 78 23 93 Nasal Cannula 1.0 24 Intake and Output 05/02/18 05/03/18 19:00 07:00 Intake Total 240 ml Balance 240 ml Intake Oral 240 ml Laboratory Tests Test 05/02/18 11:49 05/02/18 19:40 05/03/18 03:25 White Blood Count 6.7 K/UL (4.8-10.8) 6.1 K/UL (4.8-10.8) Red Blood Count 4.48 M/UL (4.70-6.10) L 4.04 M/UL (4.70-6.10) L Hemoglobin 13.8 G/DL (14.2-18.0) L 12.7 G/DL (14.2-18.0) L Hematocrit 40.9 % (42.0-52.0) L 37.0 % (42.0-52.0) L Mean Corpuscular Volume 91 FL (80-99) 91 FL (80-99) Mean Corpuscular Hemoglobin 30.9 PG (27.0-31.0) 31.5 PG (27.0-31.0) H Mean Corpuscular Hemoglobin Concent 33.8 G/DL (32.0-36.0) 34.4 G/DL (32.0-36.0) Red Cell Distribution Width 11.4 % (11.6-14.8) L 11.3 % (11.6-14.8) L Platelet Count 225 K/UL (150-450) 193 K/UL (150-450) Mean Platelet Volume 7.0 FL (6.5-10.1) 7.0 FL (6.5-10.1) Neutrophils (%) (Auto) 72.7 % (45.0-75.0) 69.3 % (45.0-75.0) Lymphocytes (%) (Auto) 11.2 % (20.0-45.0) L 14.6 % (20.0-45.0) L Monocytes (%) (Auto) 15.1 % (1.0-10.0) H 15.8 % (1.0-10.0) H Eosinophils (%) (Auto) 0.1 % (0.0-3.0) 0.0 % (0.0-3.0) Basophils (%) (Auto) 1.0 % (0.0-2.0) 0.3 % (0.0-2.0) Sodium Level 134 MMOL/L (136-145) L 135 MMOL/L (136-145) L Potassium Level 3.9 MMOL/L (3.5-5.1) 4.0 MMOL/L (3.5-5.1) Chloride Level 99 MMOL/L (98-107) 101 MMOL/L (98-107) Carbon Dioxide Level 26 MMOL/L (21-32) 26 MMOL/L (21-32) Anion Gap 9 mmol/L (5-15) 8 mmol/L (5-15) Blood Urea Nitrogen 12 mg/dL (7-18) 13 mg/dL (7-18) Creatinine 1.1 MG/DL (0.55-1.30) 1.0 MG/DL (0.55-1.30) Estimat Glomerular Filtration Rate > 60 mL/min (>60) > 60 mL/min (>60) Glucose Level 102 MG/DL (74-106) 75 MG/DL (74-106) Calcium Level 8.4 MG/DL (8.5-10.1) L 8.1 MG/DL (8.5-10.1) L Total Bilirubin 0.5 MG/DL (0.2-1.0) 0.7 MG/DL (0.2-1.0) Aspartate Amino Transf (AST/SGOT) 68 U/L (15-37) H 59 U/L (15-37) H Alanine Aminotransferase (ALT/SGPT) 124 U/L (12-78) H 103 U/L (12-78) H Alkaline Phosphatase 140 U/L (46-116) H 120 U/L (46-116) H Troponin I 2.150 ng/mL (0.000-0.056) 1.436 ng/mL (0.000-0.056) 2.420 ng/mL (0.000-0.056) Pro-B-Type Natriuretic Peptide 865 pg/mL (0-125) H 1037 pg/mL (0-125) H Total Protein 8.6 G/DL (6.4-8.2) H 7.5 G/DL (6.4-8.2) Albumin 3.4 G/DL (3.4-5.0) 3.0 G/DL (3.4-5.0) L Globulin 5.2 g/dL 4.5 g/dL Albumin/Globulin Ratio 0.7 (1.0-2.7) L 0.7 (1.0-2.7) L Prothrombin Time 13.7 SEC (9.30-11.50) H Prothromb Time International Ratio 1.3 (0.9-1.1) H Activated Partial Thromboplast Time 29 SEC (23-33) Total Creatine Kinase 162 U/L (26-308) C-Reactive Protein, Quantitative 4.4 mg/dL (0.00-0.90) H Triglycerides Level 89 MG/DL (30-150) Cholesterol Level 113 MG/DL (< 200) LDL Cholesterol 69 mg/dL (<100) HDL Cholesterol 31 MG/DL (40-60) L Cholesterol/HDL Ratio 3.6 (3.3-4.4) Thyroid Stimulating Hormone (TSH) 1.714 uiU/mL (0.358-3.740) Microbiology Date/Time Source Procedure Growth Status 05/02/18 11:49 Nasal Nares Influenza Types A,B Antigen (SHAY) - Final Complete Height (Feet): 6 Height (Inches): 0.00 Weight (Pounds): 250 Medications Current Medications Medications (Trade) Dose Ordered Sig/Alma Route PRN Reason Start Time Stop Time Status Last Admin Dose Admin Acetaminophen (Tylenol) 650 mg Q4H PRN ORAL FEVER 05/02/18 13:45 06/01/18 13:44 Albuterol/ Ipratropium (Albuterol/ Ipratropium) 3 ml Q4H PRN HHN Shortness of Breath 05/02/18 13:45 05/07/18 13:44 Aspirin (ASA) 162 mg DAILY ORAL 05/03/18 09:00 06/02/18 08:59 05/03/18 08:32 Atorvastatin Calcium (Lipitor) 80 mg BEDTIME ORAL 05/02/18 21:00 06/01/18 20:59 05/02/18 21:24 Diltiazem HCl (Cardizem) 10 mg Q1H PRN IV heart rate more than 120 05/02/18 13:45 06/01/18 13:44 Enalaprilat (Vasotec) 2.5 mg Q6H PRN IV sbp more than 160 05/02/18 13:45 06/01/18 13:44 Guaifenesin/ Dextromethorphan (Robitussin DM Syrup) 10 ml Q6HR PRN ORAL For Cough 05/03/18 00:00 06/02/18 00:00 05/03/18 00:32 Heparin Sodium (Porcine) (Heparin 5000 units/ml) 5,000 units EVERY 12 HOURS SUBQ 05/02/18 21:00 06/01/18 20:59 05/03/18 08:35 Ketorolac Tromethamine (Toradol 30mg) 30 mg Q6H PRN IV moderate pain ( 4-6) 05/02/18 13:45 05/07/18 13:44 Morphine Sulfate (Morphine Sulfate) 2 mg Q4H PRN IVP severe Pain (Pain Scale 7-10) 05/02/18 13:45 05/09/18 13:44 Nitroglycerin (Ntg) 0.4 mg Q5M PRN SL Prn Chest Pain 05/02/18 13:45 06/01/18 13:44 Ondansetron HCl (Zofran) 4 mg Q6H PRN IVP Nausea & Vomiting 05/02/18 13:45 06/01/18 13:44 Polyethylene Glycol (Miralax) 17 gm DAILYPRN PRN ORAL Constipation 05/02/18 13:45 06/01/18 13:44 Temazepam (Restoril) 15 mg HSPRN PRN ORAL Insomnia 05/02/18 13:45 05/09/18 13:44 Assessment/Plan Problem List: (1) Dyspnea ICD Codes: R06.00 - Dyspnea, unspecified SNOMED: 431145644 (2) Persistent cough ICD Codes: R05 - Cough SNOMED: 441865109 (3) Upper respiratory infection Assessment/Plan positive troponin can not be explained by any pathologic process in heart. Therefore VQ scan was ordered by airdrop systems technician. Will get CT angio which is more accurate and sensitive. Day Cox MD May 03, 2018 11:49
[2018-05-03] MEDS ORDERED: LIPITOR80 MG ORAL (11:50)
[2018-05-03] MEDS ORDERED: ASPIRIN81 MG ORAL (11:50)
[2018-05-03 12:00] VITALS: BP 119/77
--- NOTE | 2018-05-03 14:31 | History & Physical ---
History and Physical History & Physicial Nilesh Vang MD May 03, 2018 14:31
--- NOTE | 2018-05-03 15:16 | Diagnostic Imaging Report ---
Indication: Chest pain Technique: Continuous helical transaxial imaging of the chest was obtained from the thoracic inlet to the upper abdomen during rapid intravenous contrast administration. Arterial phase of enhancement obtained. Coronal 2-D reformats were also obtained and maximum intensity projection images in multiple planes. Study obtained in a Siemens sensation [address] Automatic Exposure Control was utilized. Total Dose length Product (DLP): 1125.[address] Dose Index Volume (CTDIvol): 28.78,29.88 mGy Comparison: None Findings: The pulmonary artery is well opacified and shows no filling defects. There is no adenopathy, pleural or pericardial effusions are identified. There is no aortic dissection or aneurysm identified within the chest. There is mild basal atelectasis. Visualized part of the upper abdomen is unremarkable. There is a probable gallstone. The gallbladder is only partially seen. Impression: Negative CTA of the chest Probable gallstone The CT scanner at [facility] is accredited by the [employer] and the scans are performed using dose optimization techniques as appropriate to a performed exam including Automatic Exposure control.
--- NOTE | 2018-05-03 15:20 | NUR ---
NURSE NOTES: Informed Dr. Cox regarding result of CTA chest then MD ordered to be discharge the patient to home. Order carried out.
[2018-05-03 16:00] VITALS: BP 122/77
--- NOTE | 2018-05-03 17:50 | NUR ---
NURSE NOTES: Patient discharged to home via taxi. Patient is alert and oriented x 4 and verbally responsive. Tnoy pain at this time. No distress noted in room air. No skin problems noted. Belongings checked with patient. All discharge instructions and prescription given to patient with verbalized understanding. IV site, ID band, and cardiac nurse practitioner removed prior to discharge. Pt. was ambulatory so walk him down stair. Stable condition.
--- NOTE | 2018-05-03 18:30 | History and Physical Report ---
DATE OF ADMISSION: 05/02/2018 CHIEF COMPLAINT: Generalized weakness. HISTORY OF PRESENT ILLNESS: This is a 68-year-old morbidly obese gentleman with a past medical history significant for recent pneumonia, who presented to the emergency room complaining about generalized weakness. The patient was recently discharged from the [facility] last week with upper respiratory symptoms, treated with antibiotic and inhaler, and subsequently was advised to follow up as outpatient; however, he stated that he is still not feeling good. He is feeling sluggish and tired. Shortly after initial evaluation in the emergency room, the patient was noted to have elevated troponin of 2.15 and then subsequently the patient was admitted to the hospital with non-ST elevation LA. PAST MEDICAL HISTORY/PAST SURGICAL HISTORY: As above. History of morbid obesity. Denies any history of diabetes, high blood pressure. Denies history of stroke, asthma, emphysema. MEDICATIONS: At home, please refer to medication reconciliation. ALLERGIES: Significant to Bactrim. SOCIAL HISTORY: Denies any smoking. Social drinking. Denies any substance abuse. He plays chess. Retired. FAMILY HISTORY: Noncontributory. REVIEW OF SYSTEMS: Mostly as above. Denies any dysuria, frequency, hematuria. Denies any hemoptysis or hematochezia. Denies any bloody stool. Denies any loss of consciousness. Denies any fall or head trauma. PHYSICAL EXAMINATION: VITAL SIGNS: On admission, temperature 98, pulse of 80, respirations 20, blood pressure 115/60. GENERAL: The patient awake, responsive, not in acute distress. HEAD AND NECK: Pupils equal and reactive to light. Extraocular movements intact. Neck was supple. No JVD. LUNGS: Good air entry. No wheezes or rales. HEART: S1 and S2. Regular rhythm. Distant heart sounds. ABDOMEN: Soft, nondistended, nontender. Morbidly obese. EXTREMITIES: No cyanosis, clubbing, edema. NEUROLOGIC: Cranial nerves II through XII grossly intact. Motor is 5/5 in all extremities. Gait is intact. RECTAL: Refused and deferred. GENITOURINARY: Refused and deferred. LABORATORY AND DIAGNOSTIC DATA: On admission, chest x-ray, no acute process was identified. No infiltrate. The patient had WBC of 6.7, hemoglobin 13, hematocrit 40, platelets is 225. Sodium 134, potassium 3.9, chloride 99, bicarbonate 26, BUN 12, creatinine 1.1, glucose is 102, calcium is 8.4. AST of 68, ALT of 124, alkaline phosphatase 140. ProBNP of 865. First troponin 2.15. Second troponin 1.436. Cholesterol level is 113, triglyceride is 89. PT of 13, INR 1.2, PTT of 29. EKG was noted to be normal sinus rhythm, ventricular rate of 60 to 65 with incomplete right bundle-branch block. No ST elevation was noted. The patient had a duplex of lower extremity was unremarkable. Echocardiogram preliminary result showed an ejection fraction of 60 to 65%. No evidence of pericardial effusion. Normal pulmonic valve structure. Normal tricuspid valve structure. IVC dilated to 2.6 cm slightly and physiological collapse is suggestive of the increased RA pressure. Mild mitral regurgitation. Mild diastolic velocity suggestive of mild left ventricular diastolic dysfunction. ASSESSMENT: 1. Elevated troponin with non-ST elevation LA. 2. History of recent pneumonia. 3. Morbid obesity. 4. Abnormal liver function tests. 5. Possible obstructive sleep apnea. PLAN: Admit the patient to [facility]. We will follow up with Dr. Bustos, Cardiology recommendation as well as Dr. Cox, Pulmonary Critical Care. We will monitor laboratory including serial cardiac enzymes. Follow up with heparin subcutaneous for DVT. Code status, Full Code. The patient scheduled for CT of the chest. Nilesh Vang M.D. DR: REBECCA JOB#: [id number] CC:
--- NOTE | 2018-05-06 12:27 | Diagnostic Imaging Report ---
APPROVED REPORT CPT Code: 00644 Present Symptoms Shortness of breath BILATERAL: Imaging reveals a patent deep venous system bilaterally. There is no evidence of thrombus within the common femoral, superficial femoral, popliteal or tibial segments. The greater saphenous veins are within normal limits. Doppler indicates normal spontaneous flow within these segments.
--- NOTE | 2018-05-07 11:05 | Discharge Summary ---
Discharge Summary Discharge Summary _ DATE OF ADMISSION: 05/02/2018 DATE OF DISCHARGE: 219 DISCHARGED BY:Dr. Vang REASON FOR ADMISSION: 68 years old male with past medical history of recent pneumonia, morbid obesity , presented to emergency room complaining of generalized weakness. Patient was recently discharged from [facility] last week with upper respiratory symptoms, possible pneumonia, which were treated with antibiotic and inhaler. Patient subsequently was advised to follow-up with his primary care provider.. Patient presented to emergency room complaining of generalized fatigue and nonproductive cough. Upon evaluation vital signs were stable. Laboratory workup revealed no leukocytosis , stable hemoglobin and hematocrit. Noted elevated troponin 2.15. EKG revealed sinus rhythm , no acute ischemic changes. Pro BNP 865. AST 68 , ALT 124, alkaline phosphatase 140. Chest x-ray revealed no acute cardiopulmonary pathology. Venous duplex bilateral lower extremity revealed no evidence of acute DVT. Patient received full dose of aspirin , global logistics analyst consulted. Patient admitted with diagnosis of NSTEMI to [facility] for further management. CONSULTANTS: global logistics analyst Dr. Bustos pulmonary Dr. [facility] COURSE: Patient admitted to [facility]. Toeing Stockings follow. Patient denied chest pain and had no signs and symptoms of acute coronary syndrome. Toeing Stockings stated, that there was nothing to suggest that patient had any element of coronary syndrome at this time. He recommended to repeat cardiac enzymes and EKG. Patient was continued on antiplatelet therapy with aspirin. Supplemental oxygen provided as needed to keep pulse oximetry above 92%, pulmonary toilet provided. DVT prophylaxis provided. Statin continued. Lipid panel stable. Nitroglycerin was on board as needed. Antitussive provided as needed. CT angiogram of the chest was negative. Echocardiogram revealed preserved ejection fraction of 60-65% with mild left ventricular hypertrophy, no evidence of wall motion abnormality. Right ventricular systolic pressure was suggestive of mild pulmonary hypertension. Repeated troponin still showed some elevation, however patient denied any chest pain. No acute ischemic changes on EKG. LFT were trended: AST from 68 down to 59 and ALT from 124 down to 103. Per cardiology, patient had no significant risk factors for coronary artery disease, no signs of acute coronary syndrome, no abnormalities on echo or EKG. Patient clinically stabilized and was ready for discharge home. Patient remained hemodynamically stable, no chest pain or shortness of breath, pulse oximetry was stable on room air. Patient to follow-up with a primary care provider . Patient was recommended to have outpatient stress test sleep study. Reinforced compliance with follow-up appointment with primary care provider. Return to ED precautions discussed in details with patient. Due to rapid and unexpected improvement in patient condition, patient was discharged in 1 day FINAL DIAGNOSES: Elevated troponin Possible NSTEMI? Recent history pneumonia Morbid obesity Abnormal LFT Possible obstructive sleep apnea DISCHARGE MEDICATIONS: See Medication Reconciliation list. DISCHARGE INSTRUCTIONS: Patient was discharged home . Follow up with primary care provider in one week. I have been assigned to dictate discharge summary for this account. I was not involved in the patient's management. Raquel Soto NP May 07, 2018 11:05
== END 2018-05-03 18:09 | disposition home or self-care (01) | DRG 282 ==
LOC: EMR 11:59 → 2W 13:18 → EDBEDREQ 17:36 → 2W 18:08
DX: I21.4 Non-ST elevation (NSTEMI) myocardial infarction (principal); Z88.1 Allergy status to other antibiotic agents; E66.01 Morbid (severe) obesity due to excess calories; G47.33 Obstructive sleep apnea (adult) (pediatric); R94.5 Abnormal results of liver function studies; R74.8 Abnormal levels of other serum enzymes; Z68.33 Body mass index [BMI] 33.0-33.9, adult
CPT/HCPCS: 36415; 71045; 71275; 80053; 80061; 82550; 83880; 84443; 84484; 85025; 85610; 85730; 86140; 86710; 93005; 93306; 93970; 94640; 94664; 99285

== ENCOUNTER 2018-05-12 12:51 | Emergency (ER) | payer MEDICARE, MEDICAID ==
[~2018-05-12] VITALS: Ht 182.9 cm; Wt 108.9 kg
[~2018-05-12 12:51] MED LIST changes: +ASPIRIN81 MG ORAL; +LIPITOR80 MG ORAL
[2018-05-12 12:55] VITALS: BP 149/90
--- NOTE | 2018-05-12 13:09 | Emergency Room Report ---
History of Present Illness General Chief Complaint: Male Urogenital Problems Source: Patient Present Illness HPI Patient present with complaints of a pressure type sensation when started to urinate Also a burning type sensation He reports that the symptoms had started about a month ago Was diagnosed with a bladder infection Patient also had recent hospitalization Otherwise denies any fevers denies any chest pain denies any shortness of breath Patient at times feels that he has a difficult time initiating his urination Denies any sexual contact denies any testicular pain Allergies: Coded Allergies: No Known Allergies (Unverified , 03/02/13) Patient History Past Medical History: see triage record Pertinent Family History: none Reviewed Nursing Documentation: PMH: Agreed; PSxH: Agreed Nursing Documentation-PMH Past Medical History: No History, Except For Hx Cardiac Problems: No Hx Hypertension: No Hx Pacemaker: No Hx Asthma: No Hx COPD: No - PNA Hx Diabetes: No Hx Cancer: No Hx Gastrointestinal Problems: No Hx Dialysis: No - UTI Hx Neurological Problems: No Hx Cerebrovascular Accident: No Hx Seizures: No Review of Systems All Other Systems: negative except mentioned in HPI Physical Exam Vital Signs Date Time Temp Pulse Resp B/P (MAP) Pulse Ox O2 Delivery O2 Flow Rate FiO2 05/12/18 12:55 97.7 73 17 149/90 99 Room Air Sp02 EP Interpretation: reviewed, normal General Appearance: well appearing, no apparent distress Head: normocephalic, atraumatic Eyes: bilateral eye PERRL, bilateral eye EOMI ENT: hearing grossly normal, normal pharynx, TMs + canals normal, uvula midline Neck: full range of motion, supple, no meningismus, no bony tend Respiratory: lungs clear, normal breath sounds, no rhonchi, no respiratory distress, no retraction, no accessory muscle use Cardiovascular #1: normal peripheral pulses, regular rate, rhythm, no edema, no gallop, no JVD, no murmur Gastrointestinal: normal bowel sounds, non tender, soft, no mass, no organomegaly, non-distended, no guarding, no hernia, no pulsatile mass, no rebound Genitourinary: no CVA tenderness Musculoskeletal: normal inspection Neurologic: oriented x3, responsive, olericulture professor III-XII nml as tested, motor strength/ tone normal, sensory intact Psychiatric: mood/affect normal Skin: normal color, no rash, warm/dry, palpation normal Lymphatic: normal inspection, no adenopathy Medical Decision Making Diagnostic Impression: Primary Impression: Dysuria ER Course Given the patient history and findings Urine sample was initiated no obvious acute pathology is seen Given the patient's age and some of the complaints Other differentials such as prostate condition also entertained Patient has a follow-up with his physician on Sunday And is stable for close follow-up Labs Test 05/12/18 13:10 Urine Color Pale yellow Urine Appearance Clear Urine pH 7 (4.5-8.0) Urine Specific Central 1.005 (1.005-1.035) Urine Protein Negative (NEGATIVE) Urine Glucose (UA) Negative (NEGATIVE) Urine Ketones Negative (NEGATIVE) Urine Blood Negative (NEGATIVE) Urine Nitrite Negative (NEGATIVE) Urine Bilirubin Negative (NEGATIVE) Urine Urobilinogen Normal MG/DL (0.0-1.0) Urine Leukocyte Esterase 1+ (NEGATIVE) Urine RBC 0 /HPF (0 - 0) Urine WBC 0-2 /HPF (0 - 0) Urine Squamous Epithelial Cells Occasional /LPF Urine Bacteria Occasional /HPF (NONE) Last Vital Signs Date Time Temp Pulse Resp B/P (MAP) Pulse Ox O2 Delivery O2 Flow Rate FiO2 05/12/18 12:55 97.7 73 17 149/90 99 Room Air Status: improved Disposition: HOME, SELF-CARE Condition: Improved Scripts Tamsulosin HCl (Flomax) 0.4 Mg Cap.er.24h 0.4 MG ORAL DAILY for 5 Days, CAP Prov: Luzmaria Coates DO 05/12/18 Additional Instructions: Patient is provided with the discharge instructions notified to follow up with primary doctor in the next 2-3 days otherwise return to the er with any worsening symptoms. Please note that this report is being documented using [employer] technology. This can lead to erroneous entry secondary to incorrect interpretation by the dictating instrument. Luzmaria Coates DO May 12, 2018 13:09
--- NOTE | 2018-05-12 13:11 | NUR ---
ED Nurse Note: Urine sent.
[2018-05-12 13:28] LABS: APPEARANCE,URINE CLEAR; BILIRUBIN, URINE NEGATIVE (NEGATIVE); COLOR,URINE PALE YELLOW; GLUCOSE, URINE (UA) NEGATIVE (NEGATIVE); KETONES,URINE NEGATIVE (NEGATIVE); LEUKOCYTE ESTERASE ,URINE 1+ (NEGATIVE); NITRITE,URINE NEGATIVE (NEGATIVE); PH,URINE 7 (4.5-8.0); PROTEIN,URINE NEGATIVE (NEGATIVE); UROBILINOGEN,URINE NORMAL MG/DL (0.0-1.0)
[2018-05-12] MEDS ORDERED: FLOMAX0.4 MG ORAL (13:58)
[2018-05-12 14:00] VITALS: BP 140/93
--- NOTE | 2018-05-12 14:00 | NUR ---
ED Nurse Note: pt cleared to be d/c per ER provider, pt discharge and aftercare instruction provided w/ prescription, pt advised to follow up with pcp or return to ed if sx worsen or new sx develop, pt education done via discussion and handout, pt verbalized understanding and agrees with plan, pt vss, ambulatory w/ steady gait, resp even and unlabored on RA, wristband removed, all belongings left w/pt.
== END 2018-05-12 14:18 | disposition home or self-care (01) ==
LOC: EMR 13:29
DX: R30.0 Dysuria (principal)
CPT/HCPCS: 81003; 99282

== ENCOUNTER 2019-03-24 10:19 | Emergency (ER) | payer MEDICARE, MEDICAID ==
[~2019-03-24] VITALS: Ht 182.9 cm; Wt 113.4 kg
[~2019-03-24 10:19] MED LIST changes: +FLOMAX0.4 MG ORAL
--- NOTE | 2019-03-24 10:35 | NUR ---
ED Nurse Note: Pt ambulated to ED with c/o pain on 4th digit finger on RT hand. Per pt it got hit since yesterday; skin is intact, no skin tear or discoloration noted. Placed on bed.
[2019-03-24 10:38] VITALS: BP 135/77
--- NOTE | 2019-03-24 11:04 | NUR ---
ED Nurse Note: X-ray on bedside.
--- NOTE | 2019-03-24 11:05 | Emergency Room Report ---
History of Present Illness General Chief Complaint: Upper Extremity Injury Source: Patient Present Illness HPI 68-year-old male presents ED for evaluation. Brought in by eating of right finger pain. States that he banged his right fourth finger against the table yesterday. Notes pain to the right fourth finger. Dull, 3 out of 10, nonradiating. Denies any other injuries. No other aggravating relieving factors. Denies any other associated symptoms Allergies: Coded Allergies: No Known Allergies (Unverified , 03/02/13) Patient History Past Medical History: none Pertinent Family History: none Social History: Denies: smoking, alcohol use, drug use Immunizations: UTD Reviewed Nursing Documentation: PMH: Agreed; PSxH: Agreed Nursing Documentation-PMH Past Medical History: No History, Except For Hx Cardiac Problems: No Hx Hypertension: No Hx Pacemaker: No Hx Asthma: No Hx COPD: No - PNA Hx Diabetes: No Hx Cancer: No Hx Gastrointestinal Problems: No Hx Dialysis: No - UTI Hx Neurological Problems: No Hx Cerebrovascular Accident: No Hx Seizures: No Review of Systems All Other Systems: negative except mentioned in HPI Physical Exam Vital Signs Date Time Temp Pulse Resp B/P (MAP) Pulse Ox O2 Delivery O2 Flow Rate FiO2 03/24/19 10:24 97.5 68 17 135/77 (96) 99 Room Air Sp02 EP Interpretation: reviewed, normal General Appearance: no apparent distress, alert, GCS 15, non-toxic Head: normocephalic Eyes: bilateral eye normal inspection, bilateral eye PERRL ENT: normal ENT inspection Neck: normal inspection Respiratory: normal inspection Cardiovascular #1: normal inspection Gastrointestinal: normal inspection Rectal: deferred Genitourinary: no CVA tenderness Musculoskeletal: back normal, normal range of motion, gait/station normal, tender - 4th finger PIP joint, full ROM noted Neurologic: alert, motor strength/tone normal, oriented x3, sensory intact, responsive, speech normal Psychiatric: normal inspection Skin: no rash Lymphatic: normal inspection Medical Decision Making Diagnostic Impression: Primary Impression: Finger sprain Qualified Codes: S63.634A - Sprain of interphalangeal joint of right ring finger, initial encounter ER Course Hospital Course 68 yo M presents with R 4th finger pain Differential diagnoses include: Fracture, dislocation, sprain, contusion Clinical course Patient placed on stretcher. After initial history and physical, I ordered xrays R hand. patient declined pain meds Xrays prelim read shows no acute fracture/dislocation. placed in splint. discussed findings with patient. Will discharge to home. Safe for discharge for close outpatient follow-up. States he has a PMD Diagnosis - finger sprain Stable and discharged to home with prescription for finger. apply ice, keep elevated. weight bear as tolerated. Followup with PMD. Return to ED if symptoms recur or worsen Other X-Ray Diagnostic Results Other X-Ray Diagnostic Results : X-Ray ordered: R hand # of Views/Limited Vs Complete: 3 View Indication: Pain EP Interpretation: Yes Interpretation: no dislocation, no soft tissue swelling, no fractures Impression: No acute disease Electronically Signed by: Electronically signed by Santosh Olsen MD Last Vital Signs Date Time Temp Pulse Resp B/P (MAP) Pulse Ox O2 Delivery O2 Flow Rate FiO2 03/24/19 10:38 97.5 66 17 135/77 99 Room Air Status: improved Disposition: HOME, SELF-CARE Condition: Stable Scripts Acetaminophen* (TYLENOL EXTRA STRENGTH*) 500 Mg Tablet 500 MG ORAL Q8H PRN for Prn Headache/Temp > 101, #30 TAB 0 Refills Prov: Santosh Olsen MD 03/24/19 Referrals: Nilesh Vang MD (PCP) Santosh Olsen MD Mar 24, 2019 11:05
--- NOTE | 2019-03-24 11:08 | NUR ---
ED Nurse Note: X-ray done.
--- NOTE | 2019-03-24 11:19 | NUR ---
ED Nurse Note: Splint applied on RT hand 4th digit finger.
[2019-03-24] MEDS ORDERED: TYLENOL EXTRA500 MG ORAL (11:21)
--- NOTE | 2019-03-24 11:25 | Diagnostic Imaging Report ---
Indication: Right hand pain Technique: 3 views right hand Comparison: none Findings: No acute fractures. No dislocations. Lucencies in the fourth distal phalanx terminal tuft seen on the lateral view are probably physiologic as similar lucencies are demonstrated in the third distal phalanx and are not seen on other projections. There are degenerative changes of the interphalangeal joints. Impression: No definite acute bony trauma
[2019-03-24 11:37] VITALS: BP 132/80
--- NOTE | 2019-03-24 11:37 | NUR ---
ER DISCHARGE NOTE: Patient is cleared to be discharged per ERMD, pt is aox4, on room air, with stable vital signs. pt was given dc and prescription instructions, pt was able to verbalize understanding, pt id band removed without complications. pt is able to ambulate with steady gait. pt took all belongings.
== END 2019-03-24 11:37 | disposition home or self-care (01) ==
LOC: EMR 10:40
DX: S63.634A Sprain of interphalangeal joint of right ring finger, initial encounter (principal); W22.8XXA Striking against or struck by other objects, initial encounter; Y92.9 Unspecified place or not applicable
CPT/HCPCS: 29130; 99283